=== PATIENT | male | born 1940 | race Caucasian/White ===

== ENCOUNTER → 2019-02-02 | Outpatient (CLI) | payer MEDICARE | END | disposition home or self-care (01) | LOC: SHCH 09:16 | PROVIDERS: ATTEND Internal Medicine Cardiovascular Disease | DX: I25.119 Atherosclerotic heart disease of native coronary artery with unspecified angina pectoris (principal); R06.09 Other forms of dyspnea | CPT/HCPCS: 93306 ==

== ENCOUNTER → 2019-03-16 | Outpatient (CLI) | payer MEDICARE | END | disposition home or self-care (01) | LOC: RAH 09:29 | PROVIDERS: ATTEND Internal Medicine Cardiovascular Disease | DX: I11.9 Hypertensive heart disease without heart failure (principal); I21.4 Non-ST elevation (NSTEMI) myocardial infarction | CPT/HCPCS: 93306 ==

== ENCOUNTER → 2021-02-06 | Outpatient (CLI) | payer MEDICARE | END | disposition home or self-care (01) | LOC: RAH 09:42 | PROVIDERS: ATTEND Otolaryngology Plastic Surgery within the Head & Neck | DX: R13.10 Dysphagia, unspecified (principal); R49.8 Other voice and resonance disorders | CPT/HCPCS: 74230; 76536; 92611 ==

== ENCOUNTER → 2022-09-14 | Outpatient (CLI) | payer MEDICARE | END | disposition home or self-care (01) | LOC: SHCH 10:46 | PROVIDERS: ATTEND Student in an Organized Health Care Education/Training Program | DX: I25.10 Atherosclerotic heart disease of native coronary artery without angina pectoris (principal); E78.5 Hyperlipidemia, unspecified; I25.5 Ischemic cardiomyopathy | CPT/HCPCS: 93306 ==

== ENCOUNTER → 2022-10-22 | Outpatient (CLI) | payer MEDICARE ==
[2022-10-22 16:29] LABS: BASOPHILS % (AUTO) 0.4 % (0.0-5.0); EOSINOPHILS % (AUTO) 0.5 % (0.0-8.0); HEMATOCRIT 48.8 % (42-54); LYMPHOCYTES % (AUTO) 25.2 % (21.0-51.0); MEAN CORPUSCULAR HEMOGLOBIN 29.5 pg (27.0-33.0); MEAN CORPUSCULAR HGB CONC 32.2 g/dL (32.0-36.0); MEAN CORPUSCULAR VOLUME 91.7 fL (79-99); MONOCYTES % (AUTO) 6.3 % (3.0-13.0); NEUTROPHILS % (AUTO) 65.7 % (40.0-77.0); PLATELET COUNT (AUTO) 157 K/uL (130-400); RED BLOOD CELL COUNT(AUTO) 5.32 MIL/uL (4.50-6.20); RED CELL DISTRIBUTION WIDTH 17.9 % (11.0-15.5); WHITE BLOOD COUNT (AUTO) 8.3 K/uL (4.8-10.8)
[2022-10-22 16:59] LABS: ALBUMIN 3.6 g/dL (3.5-5.0); CREATININE 1.2 mg/dL (0.5-1.5); POTASSIUM 4.5 mmol/L (3.5-5.1); TOTAL PROTEIN, SERUM 7.2 g/dL (6.0-8.3)
== END | disposition home or self-care (01) ==
LOC: LAB 15:18
PROVIDERS: ATTEND Student in an Organized Health Care Education/Training Program
DX: I10 Essential (primary) hypertension (principal); I25.10 Atherosclerotic heart disease of native coronary artery without angina pectoris; E78.5 Hyperlipidemia, unspecified
CPT/HCPCS: 36415; 80053; 80061; 85025; 86900; 86901

== ENCOUNTER 2022-11-09 08:46 | Day surgery (SDC) | payer MEDICARE ==
[2022-11-05 09:41] VITALS: BP 140/73
[2022-11-05 09:46] LABS: BASOPHILS % (AUTO) 0.4 % (0.0-5.0); EOSINOPHILS % (AUTO) 0.3 % (0.0-8.0); HEMATOCRIT 46.7 % (42-54); LYMPHOCYTES % (AUTO) 25.5 % (21.0-51.0); MEAN CORPUSCULAR HEMOGLOBIN 29.9 pg (27.0-33.0); MEAN CORPUSCULAR HGB CONC 32.5 g/dL (32.0-36.0); MEAN CORPUSCULAR VOLUME 91.9 fL (79-99); MONOCYTES % (AUTO) 9.2 % (3.0-13.0); NEUTROPHILS % (AUTO) 62.9 % (40.0-77.0); PLATELET COUNT (AUTO) 238 K/uL (130-400); RED BLOOD CELL COUNT(AUTO) 5.08 MIL/uL (4.50-6.20); RED CELL DISTRIBUTION WIDTH 18.7 % (11.0-15.5); WHITE BLOOD COUNT (AUTO) 10.9 K/uL (4.8-10.8)
[2022-11-05 09:56] LABS: CREATININE 1.1 mg/dL (0.5-1.5); POTASSIUM 4.3 mmol/L (3.5-5.1)
[2022-11-05 09:58] LABS: INR 0.94 (0.85-1.15); PROTHROMBIN TIME 10.3 SEC (9.6-11.6)
[2022-11-05 09:59] LABS: PARTIAL THROMBOPLASTIN TIME 23.9 SEC (26.3-35.5)
[2022-11-09] VITALS (15 sets, daily range): BP systolic 74–146; BP diastolic 45–86
[~2022-11-09] VITALS: Ht 182.9 cm; Wt 87.8 kg
[~2022-11-09 08:46] MED LIST: 0.9%NACL 1000ML 1,000 ML IV SCH; BUDE10.2 IH; CALC-1038 PO; CBD GUMMIES PO; COLL1CAP PO; HYDR-3830 PO; IPRA3AMP24 IH; LACT-356 PO; MAGN250T10 PO; MULT1CAP17 PO; NITR0.4T SL; OLME40TA18 PO; OMEP40CA21 PO; SERT-439 PO; TIOT18CA3 IH; [UNRECOGNIZED DRUG - OTHER] PO
[2022-11-09] MEDS ORDERED: LIDOCAINE HCL 2% VISCOUS 15 ML UDCUP ONE (10:54)
[2022-11-09] MEDS ORDERED: PROPOFOL 10 MG/ML 20ML VIAL IV ONE (11:08)
== END 2022-11-09 13:00 | disposition home or self-care (01) ==
LOC: DAH 08:46
PROVIDERS: ATTEND Student in an Organized Health Care Education/Training Program
DX: I35.9 Nonrheumatic aortic valve disorder, unspecified (principal); Z53.8 Procedure and treatment not carried out for other reasons; I25.10 Atherosclerotic heart disease of native coronary artery without angina pectoris; I10 Essential (primary) hypertension; E78.5 Hyperlipidemia, unspecified; J44.1 Chronic obstructive pulmonary disease with (acute) exacerbation; G47.30 Sleep apnea, unspecified; K21.9 Gastro-esophageal reflux disease without esophagitis; I25.2 Old myocardial infarction; Z90.49 Acquired absence of other specified parts of digestive tract; Z98.890 Other specified postprocedural states; Z95.5 Presence of coronary angioplasty implant and graft; Z68.27 Body mass index [BMI] 27.0-27.9, adult; Z87.891 Personal history of nicotine dependence; Z79.899 Other long term (current) drug therapy; Z72.89 Other problems related to lifestyle
CPT/HCPCS: 80048; 85025; 85610; 85730; 87426; 36415; 71045; 93005; A4223 ×3; J7030; J2704; A4215; A4222; A4221; A4663; A4216; A4606; 99152; 99156

== ENCOUNTER → 2022-11-19 | Outpatient (CLI) | payer MEDICARE ==
[~2022-11-19] MED LIST changes: -0.9%NACL 1000ML 1,000 ML IV SCH
== END | disposition home or self-care (01) ==
LOC: RAH 08:42
PROVIDERS: ATTEND Internal Medicine Gastroenterology
DX: K21.00 Gastro-esophageal reflux disease with esophagitis, without bleeding (principal)
CPT/HCPCS: 74220

== ENCOUNTER 2022-11-30 17:17 | Inpatient (IN) | payer MEDICARE ==
[~2022-11-30] VITALS: Ht 180.3 cm; Wt 91.6 kg
[~2022-11-30 17:17] MED LIST changes: +ETOMIDATE 20MG VIAL IVP ONE; +ROCURONIUM BROMIDE 10MG/1ML 5ML VL IV ONE
[2022-11-30] MEDS ORDERED: SOLU-MEDROL 125MG VIAL ONE (17:20)
[2022-11-30] MEDS ORDERED: DEXAMETHASONE SOD PHOSPHATE 4 MG/ML 1ML VIAL IM STA (17:20)
[2022-11-30] MEDS ORDERED: ALBUTEROL 0.083% 2.5 MG/3 ML INH IH ONE ×2 (17:26→19:00)
[2022-11-30] MEDS ORDERED: IPRATROPIUM 0.5 MG/2.5 ML INH IH ONE (17:26)
[2022-11-30] MEDS ORDERED: IPRATROPIUM/ALBUTEROL SULFATE 3 ML SOLUTION IH ONE (17:30)
[2022-11-30] MEDS ORDERED: SOLU-MEDROL 125MG VIAL IVP ONE (17:30)
[2022-11-30 17:44] LABS: ABG BASE EXCESS -3.9 mmol/L (-2.0-3.0); ABG OXYGEN SATURATION 97.9 % (95.0-99.0); ABG PCO2 33 mmHg (35-48)
[2022-11-30 17:48] LABS: BASOPHILS % (AUTO) 0.2 % (0.0-5.0); HEMATOCRIT 42.9 % (42-54); LYMPHOCYTES % (AUTO) 4.8 % (21.0-51.0); MEAN CORPUSCULAR HEMOGLOBIN 31.7 pg (27.0-33.0); MEAN CORPUSCULAR HGB CONC 33.3 g/dL (32.0-36.0); MEAN CORPUSCULAR VOLUME 95.1 fL (79-99); NEUTROPHILS % (AUTO) 88.5 % (40.0-77.0); PLATELET COUNT (AUTO) 164 K/uL (130-400); RED BLOOD CELL COUNT(AUTO) 4.51 MIL/uL (4.50-6.20); RED CELL DISTRIBUTION WIDTH 18.5 % (11.0-15.5); WHITE BLOOD COUNT (AUTO) 10.7 K/uL (4.8-10.8)
[2022-11-30 18:04] LABS: CREATININE 1.6 mg/dL (0.5-1.5); POTASSIUM 4.9 mmol/L (3.5-5.1)
[2022-11-30 18:14] LABS: ALBUMIN 3.6 g/dL (3.5-5.0); TOTAL PROTEIN, SERUM 7.7 g/dL (6.0-8.3)
[2022-11-30] MEDS ORDERED: ALBUTEROL 0.042% 1.25MG/3ML IH ONE ×2 (18:44→23:45)
[2022-11-30] MEDS ORDERED: AZITHROMYCIN 500MG+NS 250ML IVPB STA (18:49)
[2022-11-30] MEDS ORDERED: GUAIFENESIN-DM 200/20 MG 10 ML PO PRN (19:00)
[2022-11-30] MEDS ORDERED: ACETAMINOPHEN 325 MG TAB PO PRN ×2 (19:00)
[2022-11-30] MEDS: SOLU-MEDROL 40MG VIAL IVP SCH (19:00)
[2022-11-30] MEDS ORDERED: ONDANSETRON 4MG INJ IV PRN (19:00)
[2022-11-30] MEDS ORDERED: ACETAMINOPHEN WITH CODEINE 1 TAB TAB PO PRN (19:00)
[2022-11-30] MEDS ORDERED: NITROGLYCERIN 0.4 MG SL TAB SL PRN (19:00)
[2022-11-30] MEDS ORDERED: CEFTRIAXONE 1G VIAL IVP ONE (19:00)
[2022-11-30] MEDS: CEFTRIAXONE 1G VIAL IV SCH (19:00)
[2022-11-30] MEDS ORDERED: LACTULOSE 20 GM/30 ML UDCUP PO PRN (19:00)
[2022-11-30] MEDS: AZITHROMYCIN 500MG+NS 250ML 250 ML IV SCH (19:28)
[2022-11-30] MEDS ORDERED: MORPHINE 2 MG SYG IV PRN (19:30)
[2022-11-30 19:56] LABS: APPEARANCE,URINE CLEAR (CLEAR); BILIRUBIN,URINE NEGATIVE (NEGATIVE); COLOR,URINE YELLOW (YELLOW); GLUCOSE, URINE (UA) >=1000 mg/dL (NEGATIVE); KETONES,URINE NEGATIVE (NEGATIVE); LEUKOCYTE ESTERASE ,URINE NEGATIVE Leu/uL (NEGATIVE); NITRATE,URINE NEGATIVE (NEGATIVE); OCCULT BLOOD,URINE NEGATIVE (NEGATIVE); PROTEIN,URINE 50 mg/dL (NEGATIVE); UROBILINOGEN,URINE 0.2 mg/dL (0.2-1.0)
[2022-11-30] MEDS ORDERED: BUDE10.2 IH (19:56)
[2022-11-30] MEDS ORDERED: HYDR-3830 PO (19:56)
[2022-11-30 19:59] LABS: WBC,URINE 0-1 /HPF (0-1)
[2022-11-30] MEDS ORDERED: 0.9% NACL 500ML IV.SOLN 500 ML IV ONE (21:30)
[2022-11-30 21:42] LABS: HEMOGLOBIN A1C 7.5 % (4.0-6.0)
[2022-11-30] MEDS: INSULIN HUMULIN R 100 UNIT/ML 3ML SQ SCH (22:35)
[2022-11-30] MEDS: IPRATROPIUM 0.5 MG/2.5 ML INH IH PRN (23:53)
[2022-12-01] MEDS: SOLU-MEDROL 40MG VIAL IVP SCH ×4 (00:04→18:23)
[2022-12-01 04:30] VITALS: BP 110/67
[2022-12-01 05:35] LABS: HEMATOCRIT 39.6 % (42-54); MEAN CORPUSCULAR HEMOGLOBIN 30.8 pg (27.0-33.0); MEAN CORPUSCULAR HGB CONC 32.3 g/dL (32.0-36.0); MEAN CORPUSCULAR VOLUME 95.2 fL (79-99); RED BLOOD CELL COUNT(AUTO) 4.16 MIL/uL (4.50-6.20); RED CELL DISTRIBUTION WIDTH 18.3 % (11.0-15.5); WHITE BLOOD COUNT (AUTO) 8.8 K/uL (4.8-10.8)
[2022-12-01] MEDS: INSULIN HUMULIN R 100 UNIT/ML 3ML SQ SCH ×4 (05:37→20:30)
[2022-12-01 05:44] LABS: CREATININE 1.1 mg/dL (0.5-1.5); POTASSIUM 4.5 mmol/L (3.5-5.1)
[2022-12-01] MEDS ORDERED: ALBUTEROL 0.042% 1.25MG/3ML IH ONE ×3 (06:05→13:49)
[2022-12-01] MEDS: IPRATROPIUM 0.5 MG/2.5 ML INH IH PRN ×5 (06:15→22:12)
[2022-12-01] MEDS: ALBUTEROL 0.083% 2.5 MG/3 ML INH IH PRN ×2 (06:15→22:11)
[2022-12-01 08:00] VITALS: BP 117/61
[2022-12-01] MEDS: ENOXAPARIN SODIUM 30 MG/0.3 ML SQ SCH (08:13)
[2022-12-01] MEDS: ASPIRIN 81 MG EC TAB PO SCH (08:13)
[2022-12-01] MEDS: PANTOPRAZOLE 40 MG TAB DR PO SCH (08:13)
[2022-12-01] MEDS ORDERED: FAMOTIDINE 20MG TAB PO SCH (09:00)
[2022-12-01] MEDS ORDERED: LIDOCAINE HCL-MPF 1% 2ML VIAL IV PRN (10:30)
[2022-12-01] MEDS ORDERED: MAGNESIUM 2GM PREMIX 50ML 50 ML IV PRN (10:30)
[2022-12-01] MEDS ORDERED: KCL 20 MEQ ERTAB PO PRN (10:30)
[2022-12-01] MEDS ORDERED: POTASSIUM CHLORIDE 20MEQ/100ML 100 ML IV PRN (10:30)
[2022-12-01] MEDS ORDERED: POTASSIUM CHLORIDE 10% ELIXIR 20 MEQ/15 ML UDCUP PO PRN (10:30)
[2022-12-01 11:51] VITALS: BP 114/68
[2022-12-01 16:00] VITALS: BP 119/67
[2022-12-01] MEDS ORDERED: SIMETHICONE 80 MG TAB.CHEW PO PRN (16:30)
[2022-12-01] MEDS: CEFTRIAXONE 1G VIAL IV SCH (17:45)
[2022-12-01] MEDS: AZITHROMYCIN 500MG+NS 250ML 250 ML IV SCH (18:23)
[2022-12-01] MEDS: BUDESONIDE 0.5 MG/2 ML INH IH SCH (18:47)
[2022-12-01] MEDS: SERTRALINE HCL 50 MG TABLET PO SCH (19:48)
[2022-12-01 20:20] VITALS: BP 105/66
[2022-12-01] MEDS: MAG/ALUM/SIMETH 30 ML UDCUP PO PRN (20:23)
[2022-12-01] MEDS: INSULIN GLARGINE 100 UNITS/ML 10 ML VIAL SQ SCH (20:29)
[2022-12-01] MEDS ORDERED: PRAV40TA3 PO (20:34)
[2022-12-01] MEDS ORDERED: DICYCLOMINE HCL 10 MG/5 ML ML PO ONE (21:00)
[2022-12-01] MEDS ORDERED: LIDOCAINE HCL 2% VISCOUS 15 ML UDCUP PO ONE (21:00)
[2022-12-01] MEDS ORDERED: COMPOUND PO MISCELLANEOUS 1 EACH MISC MISC PRN (21:00)
[2022-12-01] MEDS ORDERED: PHARMACY COMMUNICATION MISC SCH (21:00)
[2022-12-01] MEDS ORDERED: MAG/ALUM/SIMETH 30 ML UDCUP PO ONE (21:00)
[2022-12-01] MEDS ORDERED: LIDO 2% VISC 30ML+MAG/AL/SIMETH 30ML+DICYCLOMINE 20MG 10ML PO ONE ×3 (21:30)
[2022-12-01 23:44] VITALS: BP 119/73
[2022-12-02] VITALS (34 sets, daily range): BP systolic 75–158; BP diastolic 35–94
[2022-12-02] MEDS: SOLU-MEDROL 40MG VIAL IVP SCH ×4 (00:10→20:44)
[2022-12-02] MEDS: IPRATROPIUM 0.5 MG/2.5 ML INH IH PRN ×3 (01:53→10:32)
[2022-12-02] MEDS: ALBUTEROL 0.083% 2.5 MG/3 ML INH IH PRN ×4 (01:53→21:38)
[2022-12-02 04:43] LABS: BASOPHILS % (AUTO) 0.3 % (0.0-5.0); HEMATOCRIT 40.2 % (42-54); LYMPHOCYTES % (AUTO) 9.7 % (21.0-51.0); MEAN CORPUSCULAR HEMOGLOBIN 31.2 pg (27.0-33.0); MEAN CORPUSCULAR HGB CONC 32.8 g/dL (32.0-36.0); MONOCYTES % (AUTO) 4.2 % (3.0-13.0); NEUTROPHILS % (AUTO) 84.2 % (40.0-77.0); PLATELET COUNT (AUTO) 174 K/uL (130-400); RED BLOOD CELL COUNT(AUTO) 4.23 MIL/uL (4.50-6.20); RED CELL DISTRIBUTION WIDTH 17.9 % (11.0-15.5); WHITE BLOOD COUNT (AUTO) 7.6 K/uL (4.8-10.8)
[2022-12-02 04:56] LABS: CREATININE 1.1 mg/dL (0.5-1.5); PHOSPHORUS 3.2 mg/dL (2.5-4.9); POTASSIUM 4.3 mmol/L (3.5-5.1)
[2022-12-02] MEDS: INSULIN HUMULIN R 100 UNIT/ML 3ML SQ SCH (06:22)
[2022-12-02] MEDS: BUDESONIDE 0.5 MG/2 ML INH IH SCH ×4 (06:36→21:00)
[2022-12-02] MEDS: ASPIRIN 81 MG EC TAB PO SCH (08:07)
[2022-12-02] MEDS: PANTOPRAZOLE 40 MG TAB DR PO SCH (08:07)
[2022-12-02] MEDS: ENOXAPARIN SODIUM 30 MG/0.3 ML SQ SCH (08:08)
[2022-12-02 09:37] LABS: ABG BASE EXCESS -1.7 mmol/L (-2.0-3.0); ABG HCO3 24.3 mmol/L (21.0-28.0); ABG OXYGEN SATURATION 93.3 % (95.0-99.0); ABG PCO2 46 mmHg (35-48)
[2022-12-02] MEDS: HYDROXYZINE 10 MG TABLET PO PRN (09:37)
[2022-12-02] MEDS ORDERED: MORPHINE 2 MG SYG IVP SCH (11:00)
[2022-12-02] MEDS ORDERED: METOPROLOL TARTRATE 1 MG/ML 5ML VIAL IV ONE (11:15)
[2022-12-02] MEDS ORDERED: METOPROLOL TARTRATE 1 MG/ML 5ML VIAL IV SCH (11:30)
[2022-12-02] MEDS ORDERED: FUROSEMIDE 40MG VIAL ONE (12:18)
[2022-12-02] MEDS ORDERED: SOLU-MEDROL 40MG VIAL IVP ONE (12:30)
[2022-12-02] MEDS ORDERED: SOLU-MEDROL 125MG VIAL IVP SCH (12:30)
[2022-12-02] MEDS ORDERED: FUROSEMIDE 40MG VIAL IV SCH (12:30)
[2022-12-02] MEDS ORDERED: 0.9%NACL 50ML IV SCH ×2 (13:00→14:00)
[2022-12-02] MEDS ORDERED: MORPHINE 2 MG SYG IVP ONE (13:00)
[2022-12-02 13:02] LABS: ABG BASE EXCESS -7.6 mmol/L (-2.0-3.0); ABG HCO3 21.6 mmol/L (21.0-28.0); ABG OXYGEN SATURATION 95.4 % (95.0-99.0); ABG PCO2 60 mmHg (35-48)
[2022-12-02] MEDS ORDERED: DEXMEDETOMIDINE 400MCG/NS100ML IV ONE (13:06)
[2022-12-02 13:16] LABS: CREATININE 1.7 mg/dL (0.5-1.5)
[2022-12-02] MEDS ORDERED: DILTIAZEM IV SCH (13:20)
[2022-12-02] MEDS ORDERED: [UNRECOGNIZED DRUG - OTHER] IV SCH (13:20)
[2022-12-02] MEDS ORDERED: DILTIAZEM 25MG INJ IVP SCH (13:20)
[2022-12-02 13:28] LABS: POTASSIUM 6.1 mmol/L (3.5-5.1)
[2022-12-02] MEDS ORDERED: DEXTROSE 50%-WATER 50 ML DISP.SYRIN IV PRN (13:30)
[2022-12-02] MEDS ORDERED: LIDOCAINE HCL-MPF 1% 2ML VIAL IV PRN (13:30)
[2022-12-02] MEDS ORDERED: GLUCAGON 1MG KIT 1 MG ML IM PRN (13:30)
[2022-12-02] MEDS ORDERED: POTASSIUM CHLORIDE 20MEQ/100ML 100 ML IV PRN (13:30)
[2022-12-02] MEDS ORDERED: DILTIAZEM 125MG+100 ML NS 125 ML IV SCH (13:30)
[2022-12-02] MEDS ORDERED: MAGNESIUM 2GM PREMIX 50ML 50 ML IV PRN (13:30)
[2022-12-02] MEDS ORDERED: SODIUM BICARB 50MEQ 50ML VIAL 50 ML ONE (13:46)
[2022-12-02] MEDS ORDERED: DEXTROSE 50%-WATER 50 ML DISP.SYRIN IV SCH (14:00)
[2022-12-02] MEDS ORDERED: DILTIAZEM 125MG+100 ML NS 125 ML IV NR (14:00)
[2022-12-02] MEDS ORDERED: INSULIN HUMULIN R 100 UNIT/ML 3ML IV SCH (14:00)
[2022-12-02] MEDS ORDERED: CALCIUM GLUC 1GM/10ML VIAL IVPB SCH (14:00)
[2022-12-02 14:04] LABS: ABG BASE EXCESS -6.5 mmol/L (-2.0-3.0); ABG HCO3 23.6 mmol/L (21.0-28.0); ABG OXYGEN SATURATION 89.6 % (95.0-99.0); ABG PCO2 70 mmHg (35-48)
[2022-12-02] MEDS ORDERED: PROPOFOL 1000 MG/100 ML 100 ML IV ONE (14:08)
[2022-12-02] MEDS ORDERED: MIDAZOLAM 100MG-0.9% NS 100ML 100 ML IV ONE (14:08)
[2022-12-02] MEDS: IPRATROPIUM 0.5 MG/2.5 ML INH IH SCH ×4 (14:22→23:26)
[2022-12-02] MEDS ORDERED: KAYEXALATE 15GM/60ML RC ONE (15:00)
[2022-12-02] MEDS: ENOXAPARIN SODIUM 100 MG/1 ML SQ SCH (16:44)
[2022-12-02] MEDS: SODIUM BICARB 50MEQ 50ML VIAL IV SCH (16:46)
[2022-12-02] MEDS: ZOSYN 3.375GM +NS 50ML IVPB SCH ×2 (16:47→20:44)
[2022-12-02] MEDS: DEXMEDETOMIDINE 400MCG/NS100ML IV SCH (16:49)
[2022-12-02] MEDS ORDERED: ZIPRASIDONE MESYLATE 20 MG/VIAL IM PRN (17:00)
[2022-12-02] MEDS ORDERED: THIAMINE HCL 100 MG/ML 2ML VIAL IVP ONE (17:30)
[2022-12-02] MEDS ORDERED: INSULIN HUMULIN R 100 UNIT/ML 3ML SQ SCH (17:30)
[2022-12-02 18:15] LABS: INR 1.02 (0.85-1.15); PROTHROMBIN TIME 11.1 SEC (9.6-11.6)
[2022-12-02 19:01] LABS: CREATININE 2.3 mg/dL (0.5-1.5); POTASSIUM 5.9 mmol/L (3.5-5.1)
[2022-12-02] MEDS ORDERED: NOREPINEPHRIN 8MG/250ML NS PMX 250 ML IV ONE (19:20)
[2022-12-02] MEDS: AZITHROMYCIN 500MG+NS 250ML 250 ML IV SCH (20:44)
[2022-12-02] MEDS: INSULIN GLARGINE 100 UNITS/ML 10 ML VIAL SQ SCH (20:45)
[2022-12-02] MEDS: SERTRALINE HCL 50 MG TABLET PO SCH (20:46)
[2022-12-02] MEDS ORDERED: NOREPINEPHRINE 8MG/NS 250ML PREMIX IV SCH (21:30)
[2022-12-02 21:39] LABS: ABG BASE EXCESS -5.7 mmol/L (-2.0-3.0); ABG HCO3 21.1 mmol/L (21.0-28.0); ABG OXYGEN SATURATION 98.2 % (95.0-99.0); ABG PCO2 46 mmHg (35-48)
[2022-12-02] MEDS ORDERED: LACTATED RINGERS 1000ML IV SCH (21:45)
[2022-12-02] MEDS ORDERED: 0.9%NACL 1000ML 1,506 ML IV ONE (22:00)
[2022-12-02] MEDS ORDERED: NOREPINEPHRIN 8MG/250ML NS PMX 250 ML IV SCH (22:00)
[2022-12-02] MEDS ORDERED: SODIUM BICARB 50MEQ 50ML VIAL IV ONE (23:00)
[2022-12-03] VITALS (59 sets, daily range): BP systolic 93–175; BP diastolic 47–100
[2022-12-03] MEDS: SOLU-MEDROL 40MG VIAL IVP SCH ×4 (01:24→18:23)
[2022-12-03] MEDS: IPRATROPIUM 0.5 MG/2.5 ML INH IH SCH ×5 (01:47→18:59)
[2022-12-03] MEDS: ALBUTEROL 0.083% 2.5 MG/3 ML INH IH PRN (01:47)
[2022-12-03] MEDS ORDERED: SODIUM BICARB 50MEQ 50ML VIAL IVPB SCH (03:00)
[2022-12-03 04:04] LABS: BASOPHILS % (AUTO) 0.7 % (0.0-5.0); EOSINOPHILS % (AUTO) 0.4 % (0.0-8.0); HEMATOCRIT 32.9 % (42-54); LYMPHOCYTES % (AUTO) 10.1 % (21.0-51.0); MEAN CORPUSCULAR HEMOGLOBIN 31.2 pg (27.0-33.0); MEAN CORPUSCULAR HGB CONC 32.5 g/dL (32.0-36.0); MEAN CORPUSCULAR VOLUME 95.9 fL (79-99); MONOCYTES % (AUTO) 4.1 % (3.0-13.0); NEUTROPHILS % (AUTO) 78.4 % (40.0-77.0); PLATELET COUNT (AUTO) 118 K/uL (130-400); RED BLOOD CELL COUNT(AUTO) 3.43 MIL/uL (4.50-6.20); RED CELL DISTRIBUTION WIDTH 17.9 % (11.0-15.5); WHITE BLOOD COUNT (AUTO) 7.3 K/uL (4.8-10.8)
[2022-12-03 04:22] LABS: CREATININE 2.1 mg/dL (0.5-1.5); MAGNESIUM 2.2 mg/dL (1.80-2.40); PHOSPHORUS 5.4 mg/dL (2.5-4.9); POTASSIUM 4.6 mmol/L (3.5-5.1)
[2022-12-03 04:22] LABS: ABG BASE EXCESS 4.1 mmol/L (-2.0-3.0); ABG HCO3 29.5 mmol/L (21.0-28.0); ABG OXYGEN SATURATION 92.4 % (95.0-99.0); ABG PCO2 47 mmHg (35-48)
[2022-12-03] MEDS: ZOSYN 3.375GM +NS 50ML IVPB SCH ×3 (04:46→21:27)
[2022-12-03] MEDS: DEXMEDETOMIDINE 400MCG/NS100ML IV SCH ×4 (04:47→14:34)
[2022-12-03] MEDS: INSULIN HUMULIN R 100 UNIT/ML 3ML SQ SCH ×4 (06:00→18:22)
[2022-12-03] MEDS: THIAMINE HCL 100 MG/ML 2ML VIAL IVP SCH (08:02)
[2022-12-03] MEDS: PANTOPRAZOLE 40 MG TAB DR PO SCH (08:02)
[2022-12-03] MEDS: ASPIRIN 81 MG EC TAB PO SCH (08:02)
[2022-12-03] MEDS: PANTOPRAZOLE 40 MG/VIAL IVP SCH (11:34)
[2022-12-03] MEDS: CHLORHEXIDINE GLUCONATE 473 ML MOUTHWASH MM SCH ×4 (11:46→21:33)
[2022-12-03] MEDS: 0.9%NACL 1000ML 1,000 ML IV SCH ×2 (13:04→19:24)
[2022-12-03] MEDS: SODIUM BICARB 50MEQ 50ML VIAL IV SCH (13:06)
[2022-12-03] MEDS: ENOXAPARIN SODIUM 100 MG/1 ML SQ SCH (16:18)
[2022-12-03] MEDS: AZITHROMYCIN 500MG+NS 250ML 250 ML IV SCH (18:22)
[2022-12-03] MEDS: BUDESONIDE 0.5 MG/2 ML INH IH SCH (19:03)
[2022-12-03 20:23] LABS: ABG HCO3 29.9 mmol/L (21.0-28.0); ABG OXYGEN SATURATION 95.6 % (95.0-99.0); ABG PCO2 45 mmHg (35-48)
[2022-12-03] MEDS: SERTRALINE HCL 50 MG TABLET PO SCH ×2 (21:00→21:27)
[2022-12-03] MEDS ORDERED: MORPHINE 4 MG SYG IM PRN (21:30)
[2022-12-03] MEDS ORDERED: MORPHINE 2 MG SYG IVP PRN (21:30)
[2022-12-03] MEDS: INSULIN GLARGINE 100 UNITS/ML 10 ML VIAL SQ SCH (21:32)
[2022-12-04] VITALS (38 sets, daily range): BP systolic 91–130; BP diastolic 44–85
[2022-12-04] MEDS: DEXMEDETOMIDINE 400MCG/NS100ML IV SCH ×3 (00:45→23:48)
[2022-12-04] MEDS: 0.9%NACL 1000ML 1,000 ML IV SCH ×3 (01:41→14:40)
[2022-12-04] MEDS: SOLU-MEDROL 40MG VIAL IVP SCH ×4 (01:41→21:45)
[2022-12-04] MEDS: IPRATROPIUM 0.5 MG/2.5 ML INH IH SCH ×4 (02:00→12:30)
[2022-12-04 04:12] LABS: BASOPHILS % (AUTO) 0.1 % (0.0-5.0); HEMATOCRIT 28.1 % (42-54); LYMPHOCYTES % (AUTO) 6.9 % (21.0-51.0); MEAN CORPUSCULAR HEMOGLOBIN 31.3 pg (27.0-33.0); MEAN CORPUSCULAR HGB CONC 32.4 g/dL (32.0-36.0); MEAN CORPUSCULAR VOLUME 96.6 fL (79-99); MONOCYTES % (AUTO) 4.2 % (3.0-13.0); NEUTROPHILS % (AUTO) 84.7 % (40.0-77.0); PLATELET COUNT (AUTO) 110 K/uL (130-400); RED BLOOD CELL COUNT(AUTO) 2.91 MIL/uL (4.50-6.20); RED CELL DISTRIBUTION WIDTH 17.6 % (11.0-15.5); WHITE BLOOD COUNT (AUTO) 9.1 K/uL (4.8-10.8)
[2022-12-04 04:36] LABS: CREATININE 1.7 mg/dL (0.5-1.5); MAGNESIUM 2.2 mg/dL (1.80-2.40); POTASSIUM 4.2 mmol/L (3.5-5.1)
[2022-12-04] MEDS: INSULIN HUMULIN R 100 UNIT/ML 3ML SQ SCH ×4 (05:17→17:05)
[2022-12-04] MEDS: ZOSYN 3.375GM +NS 50ML IVPB SCH ×3 (05:24→21:47)
[2022-12-04] MEDS: BUDESONIDE 0.5 MG/2 ML INH IH SCH ×2 (06:14→18:00)
[2022-12-04 07:18] LABS: ABG BASE EXCESS 5.6 mmol/L (-2.0-3.0); ABG HCO3 30.5 mmol/L (21.0-28.0); ABG OXYGEN SATURATION 96.3 % (95.0-99.0); ABG PCO2 45 mmHg (35-48)
[2022-12-04] MEDS: ASPIRIN 81 MG EC TAB PO SCH (09:00)
[2022-12-04] MEDS ORDERED: ACETYLCYSTEINE 20% 200MG/ML 4ML VIAL PO ONE (09:30)
[2022-12-04 09:49] LABS: BASOPHILS % (AUTO) 0.2 % (0.0-5.0); HEMATOCRIT 30.1 % (42-54); LYMPHOCYTES % (AUTO) 7.6 % (21.0-51.0); MEAN CORPUSCULAR HEMOGLOBIN 31.4 pg (27.0-33.0); MEAN CORPUSCULAR HGB CONC 31.6 g/dL (32.0-36.0); MEAN CORPUSCULAR VOLUME 99.3 fL (79-99); MONOCYTES % (AUTO) 3.1 % (3.0-13.0); PLATELET COUNT (AUTO) 142 K/uL (130-400); RED BLOOD CELL COUNT(AUTO) 3.03 MIL/uL (4.50-6.20); RED CELL DISTRIBUTION WIDTH 17.9 % (11.0-15.5)
[2022-12-04 09:58] LABS: CREATININE 1.6 mg/dL (0.5-1.5); POTASSIUM 4.4 mmol/L (3.5-5.1)
[2022-12-04 10:01] LABS: INR 1.04 (0.85-1.15); PROTHROMBIN TIME 11.3 SEC (9.6-11.6)
[2022-12-04 10:02] LABS: PARTIAL THROMBOPLASTIN TIME 24.3 SEC (26.3-35.5)
[2022-12-04] MEDS: ACETYLCYSTEINE 20% 200MG/ML 4ML VIAL PO SCH ×2 (10:07→16:28)
[2022-12-04] MEDS: THIAMINE HCL 100 MG/ML 2ML VIAL IVP SCH (10:08)
[2022-12-04] MEDS: PANTOPRAZOLE 40 MG/VIAL IVP SCH (10:08)
[2022-12-04] MEDS ORDERED: FUROSEMIDE 40MG VIAL IV ONE (10:30)
[2022-12-04] MEDS ORDERED: PHYTONADIONE 10 MG in 0.9%NACL 50ML 50 ML IVPB ONE (10:30)
[2022-12-04] MEDS ORDERED: SUCCINYLCHOLINE 200MG/10ML SYR ONE (12:10)
[2022-12-04] MEDS ORDERED: PROPOFOL 10 MG/ML 20ML VIAL IV ONE (12:10)
[2022-12-04] MEDS ORDERED: EPHEDRINE SULFATE 50 MG/ML AMPULE ONE (12:10)
[2022-12-04] MEDS ORDERED: FENTANYL CITRATE PF 50 MCG/1 ML 2ML VIAL ONE (12:10)
[2022-12-04] MEDS ORDERED: ROCURONIUM 10MG/1ML SYR 10 MG/ML ML ONE (12:11)
[2022-12-04] MEDS ORDERED: AMINOCAPROIC ACID 5,000MG VIAL IV STA (12:17)
[2022-12-04] MEDS: SODIUM BICARB 50MEQ 50ML VIAL IV SCH (12:55)
[2022-12-04] MEDS: CHLORHEXIDINE GLUCONATE 473 ML MOUTHWASH MM SCH ×4 (13:00→21:47)
[2022-12-04] MEDS ORDERED: AMINOCAPROIC ACID 5,000MG VIAL 1,000 MG in 0.9%NACL 50ML 50 ML IV ONE (13:00)
[2022-12-04] MEDS ORDERED: IPRATROPIUM 0.5 MG/2.5 ML INH IH PRN (18:00)
[2022-12-04] MEDS ORDERED: IPRATROPIUM 0.5 MG/2.5 ML INH IH SCH (18:00)
[2022-12-04] MEDS: AZITHROMYCIN 500MG+NS 250ML 250 ML IV SCH (21:45)
[2022-12-04] MEDS: SERTRALINE HCL 50 MG TABLET PO SCH (21:46)
[2022-12-04] MEDS: INSULIN GLARGINE 100 UNITS/ML 10 ML VIAL SQ SCH (21:58)
[2022-12-05] VITALS (32 sets, daily range): BP systolic 99–131; BP diastolic 40–74
[2022-12-05] MEDS: INSULIN HUMULIN R 100 UNIT/ML 3ML SQ SCH ×4 (01:00→18:00)
[2022-12-05] MEDS: SOLU-MEDROL 40MG VIAL IVP SCH ×4 (01:04→20:54)
[2022-12-05 04:21] LABS: BASOPHILS % (AUTO) 0.1 % (0.0-5.0); LYMPHOCYTES % (AUTO) 9.2 % (21.0-51.0); MEAN CORPUSCULAR HEMOGLOBIN 31.4 pg (27.0-33.0); MEAN CORPUSCULAR HGB CONC 32.6 g/dL (32.0-36.0); MEAN CORPUSCULAR VOLUME 96.2 fL (79-99); MONOCYTES % (AUTO) 2.2 % (3.0-13.0); NUCLEATED RED BLOOD CELLS 0.3 % (0.0-0.19); PLATELET COUNT (AUTO) 149 K/uL (130-400); RED BLOOD CELL COUNT(AUTO) 2.39 MIL/uL (4.50-6.20); RED CELL DISTRIBUTION WIDTH 17.3 % (11.0-15.5); WHITE BLOOD COUNT (AUTO) 9.1 K/uL (4.8-10.8)
[2022-12-05 04:46] LABS: ALBUMIN 2.4 g/dL (3.5-5.0); CREATININE 1.4 mg/dL (0.5-1.5); MAGNESIUM 2.3 mg/dL (1.80-2.40); PHOSPHORUS 3.6 mg/dL (2.5-4.9); POTASSIUM 4.2 mmol/L (3.5-5.1); TOTAL PROTEIN, SERUM 5.1 g/dL (6.0-8.3)
[2022-12-05] MEDS: ZOSYN 3.375GM +NS 50ML IVPB SCH ×3 (04:58→20:54)
[2022-12-05] MEDS: DEXMEDETOMIDINE 400MCG/NS100ML IV SCH ×2 (05:01→15:05)
[2022-12-05] MEDS: BUDESONIDE 0.5 MG/2 ML INH IH SCH ×2 (06:00→18:34)
[2022-12-05] MEDS: AMINOCAPROIC ACID 5,000MG VIAL IV SCH ×2 (06:43→12:58)
[2022-12-05] MEDS: THIAMINE HCL 100 MG/ML 2ML VIAL IVP SCH (10:00)
[2022-12-05] MEDS: 0.9%NACL 1000ML 1,000 ML IV SCH (10:01)
[2022-12-05] MEDS: ASPIRIN 81 MG EC TAB PO SCH (10:01)
[2022-12-05] MEDS: PANTOPRAZOLE 40 MG/VIAL IVP SCH (10:01)
[2022-12-05] MEDS: CHLORHEXIDINE GLUCONATE 473 ML MOUTHWASH MM SCH ×4 (10:16→20:57)
[2022-12-05] MEDS: SODIUM BICARB 50MEQ 50ML VIAL IV SCH (13:46)
[2022-12-05] MEDS ORDERED: CLINIMIX-E 5%AA /D15%W 2000ML 2,000 ML IV ONE (18:30)
[2022-12-05] MEDS: AZITHROMYCIN 500MG+NS 250ML 250 ML IV SCH (20:54)
[2022-12-05] MEDS: INSULIN GLARGINE 100 UNITS/ML 10 ML VIAL SQ SCH (20:55)
[2022-12-05] MEDS: SERTRALINE HCL 50 MG TABLET PO SCH (20:56)
[2022-12-05] MEDS: ACETYLCYSTEINE 20% 200MG/ML 4ML VIAL PO SCH (21:30)
[2022-12-06] VITALS (25 sets, daily range): BP systolic 111–175; BP diastolic 50–84
[2022-12-06] MEDS: INSULIN HUMULIN R 100 UNIT/ML 3ML SQ SCH ×4 (00:54→17:09)
[2022-12-06] MEDS: SOLU-MEDROL 40MG VIAL IVP SCH ×4 (02:11→20:36)
[2022-12-06] MEDS: ACETYLCYSTEINE 20% 200MG/ML 4ML VIAL PO SCH (02:12)
[2022-12-06 03:12] LABS: BASOPHILS % (AUTO) 0.2 % (0.0-5.0); HEMATOCRIT 26.2 % (42-54); MEAN CORPUSCULAR HEMOGLOBIN 31.2 pg (27.0-33.0); MEAN CORPUSCULAR HGB CONC 32.1 g/dL (32.0-36.0); MEAN CORPUSCULAR VOLUME 97.4 fL (79-99); MONOCYTES % (AUTO) 2.4 % (3.0-13.0); NEUTROPHILS % (AUTO) 84.4 % (40.0-77.0); NUCLEATED RED BLOOD CELLS 0.3 % (0.0-0.19); PLATELET COUNT (AUTO) 140 K/uL (130-400); RED BLOOD CELL COUNT(AUTO) 2.69 MIL/uL (4.50-6.20); RED CELL DISTRIBUTION WIDTH 17.4 % (11.0-15.5); WHITE BLOOD COUNT (AUTO) 10.3 K/uL (4.8-10.8)
[2022-12-06 03:31] LABS: ALBUMIN 2.4 g/dL (3.5-5.0); CREATININE 1.2 mg/dL (0.5-1.5); MAGNESIUM 2.4 mg/dL (1.80-2.40); POTASSIUM 4.2 mmol/L (3.5-5.1); TOTAL PROTEIN, SERUM 5.1 g/dL (6.0-8.3)
[2022-12-06] MEDS: ZOSYN 3.375GM +NS 50ML IVPB SCH ×3 (03:40→20:36)
[2022-12-06] MEDS ORDERED: BUDESONIDE 0.5 MG/2 ML INH IH ONE (06:17)
[2022-12-06] MEDS: BUDESONIDE 0.5 MG/2 ML INH IH SCH ×2 (06:38→18:51)
[2022-12-06] MEDS: PANTOPRAZOLE 40 MG/VIAL IVP SCH (08:14)
[2022-12-06] MEDS: CHLORHEXIDINE GLUCONATE 473 ML MOUTHWASH MM SCH ×4 (08:14→20:37)
[2022-12-06] MEDS: THIAMINE HCL 100 MG/ML 2ML VIAL IVP SCH (08:14)
[2022-12-06] MEDS: ASPIRIN 81 MG EC TAB PO SCH (08:14)
[2022-12-06] MEDS: INSULIN GLARGINE 100 UNITS/ML 10 ML VIAL SQ SCH ×2 (10:05→21:22)
[2022-12-06] MEDS: HYDROXYZINE 10 MG TABLET PO PRN ×2 (11:43→22:33)
[2022-12-06] MEDS ORDERED: PHARMACY COMMUNICATION MISC SCH (12:00)
[2022-12-06] MEDS ORDERED: FUROSEMIDE 40MG VIAL IV SCH (13:00)
[2022-12-06] MEDS ORDERED: CLINIMIX-E 5%AA /D15%W 2000ML 2,000 ML IV ONE (18:00)
[2022-12-06] MEDS: ARFORMOTEROL 15 MCG NEB SCH (19:21)
[2022-12-06] MEDS: ALBUTEROL 0.083% 2.5 MG/3 ML INH IH PRN (19:57)
[2022-12-06] MEDS: AZITHROMYCIN 500MG+NS 250ML 250 ML IV SCH (20:36)
[2022-12-06] MEDS: SERTRALINE HCL 50 MG TABLET PO SCH (20:36)
[2022-12-06 23:11] LABS: MAGNESIUM 2.2 mg/dL (1.80-2.40); POTASSIUM 3.7 mmol/L (3.5-5.1)
[2022-12-07] VITALS (30 sets, daily range): BP systolic 109–157; BP diastolic 44–82
[2022-12-07] MEDS: INSULIN HUMULIN R 100 UNIT/ML 3ML SQ SCH ×5 (00:58→23:59)
[2022-12-07] MEDS: SOLU-MEDROL 40MG VIAL IVP SCH ×3 (02:36→23:56)
[2022-12-07] MEDS ORDERED: ZIPRASIDONE MESYLATE 20 MG/VIAL IM ONE (03:55)
[2022-12-07 03:56] LABS: BASOPHILS % (AUTO) 0.4 % (0.0-5.0); LYMPHOCYTES % (AUTO) 6.3 % (21.0-51.0); MEAN CORPUSCULAR HGB CONC 33.1 g/dL (32.0-36.0); MEAN CORPUSCULAR VOLUME 93.5 fL (79-99); MONOCYTES % (AUTO) 2.9 % (3.0-13.0); NEUTROPHILS % (AUTO) 84.3 % (40.0-77.0); NUCLEATED RED BLOOD CELLS 0.5 % (0.0-0.19); PLATELET COUNT (AUTO) 239 K/uL (130-400); RED CELL DISTRIBUTION WIDTH 17.4 % (11.0-15.5); WHITE BLOOD COUNT (AUTO) 20.9 K/uL (4.8-10.8)
[2022-12-07 04:06] LABS: ALBUMIN 2.7 g/dL (3.5-5.0); CREATININE 1.2 mg/dL (0.5-1.5); MAGNESIUM 2.2 mg/dL (1.80-2.40); PHOSPHORUS 2.7 mg/dL (2.5-4.9); TOTAL PROTEIN, SERUM 5.8 g/dL (6.0-8.3)
[2022-12-07] MEDS ORDERED: HYDROXYZINE 10 MG TABLET PO SCH (05:25)
[2022-12-07] MEDS: ZOSYN 3.375GM +NS 50ML IVPB SCH ×3 (05:30→20:38)
[2022-12-07] MEDS: BUDESONIDE 0.5 MG/2 ML INH IH SCH ×2 (06:49→18:00)
[2022-12-07] MEDS: ARFORMOTEROL 15 MCG NEB SCH ×2 (09:00→21:00)
[2022-12-07] MEDS ORDERED: FAT EMULSIONS 20% 250ML 250 ML IV SCH (10:00)
[2022-12-07] MEDS: THIAMINE HCL 100 MG/ML 2ML VIAL IVP SCH (10:31)
[2022-12-07] MEDS: PANTOPRAZOLE 40 MG/VIAL IVP SCH (10:31)
[2022-12-07] MEDS: INSULIN GLARGINE 100 UNITS/ML 10 ML VIAL SQ SCH ×2 (10:42→21:04)
[2022-12-07] MEDS: CHLORHEXIDINE GLUCONATE 473 ML MOUTHWASH MM SCH ×4 (10:51→20:39)
[2022-12-07] MEDS: DEXMEDETOMIDINE 400MCG/NS100ML IV SCH ×3 (11:14→23:16)
[2022-12-07] MEDS ORDERED: LABETALOL 20MG VIAL IV PRN (12:00)
[2022-12-07] MEDS ORDERED: CLINIMIX-E 5%AA /D15%W 2000ML 2,000 ML IV PRN (13:30)
[2022-12-07] MEDS: AZITHROMYCIN 500MG+NS 250ML 250 ML IV SCH (20:38)
[2022-12-07] MEDS: SERTRALINE HCL 50 MG TABLET PO SCH (20:39)
[2022-12-07] MEDS ORDERED: FUROSEMIDE 40MG VIAL IV ONE (21:30)
[2022-12-07 23:26] LABS: ABG BASE EXCESS 4.1 mmol/L (-2.0-3.0); ABG HCO3 28.6 mmol/L (21.0-28.0); ABG OXYGEN SATURATION 97.2 % (95.0-99.0); ABG PCO2 43 mmHg (35-48)
[2022-12-07] MEDS ORDERED: PHARMACY COMMUNICATION MISC SCH (23:45)
[2022-12-08] VITALS (42 sets, daily range): BP systolic 85–149; BP diastolic 44–87
[2022-12-08] MEDS ORDERED: RACEPINEPHRINE HCL 2.25% 0.5 ML NEB SOLN IH SCH
[2022-12-08] MEDS ORDERED: OXYMETAZOLINE HCL SPRAY 15 ML BOTTLE EN SCH
[2022-12-08] MEDS ORDERED: TRANEXAMIC ACID 1000MG/10ML ONE (00:08)
[2022-12-08] MEDS ORDERED: TRANEXAMIC ACID 1000MG/10ML TP ONE ×2 (00:30→06:00)
[2022-12-08] MEDS: OXYMETAZOLINE HCL SPRAY 15 ML BOTTLE EN SCH ×3 (00:41→21:08)
[2022-12-08] MEDS: ZOSYN 3.375GM +NS 50ML IVPB SCH ×3 (05:07→20:57)
[2022-12-08] MEDS: INSULIN HUMULIN R 100 UNIT/ML 3ML SQ SCH ×3 (05:16→17:46)
[2022-12-08 05:22] LABS: BASOPHILS % (AUTO) 0.3 % (0.0-5.0); HEMATOCRIT 28.8 % (42-54); LYMPHOCYTES % (AUTO) 5.5 % (21.0-51.0); MEAN CORPUSCULAR HEMOGLOBIN 31.7 pg (27.0-33.0); MONOCYTES % (AUTO) 2.5 % (3.0-13.0); NEUTROPHILS % (AUTO) 86.1 % (40.0-77.0); NUCLEATED RED BLOOD CELLS 0.3 % (0.0-0.19); PLATELET COUNT (AUTO) 210 K/uL (130-400); RED CELL DISTRIBUTION WIDTH 17.5 % (11.0-15.5)
[2022-12-08 05:47] LABS: ALANINE AMINOTRANSFERASE 343 U/L (12-78); ALBUMIN 2.9 g/dL (3.5-5.0); ASPARTATE AMINOTRANSFERASE 46 U/L (10-37); CARBON DIOXIDE 32 mmol/L (21-32); CHLORIDE 106 mmol/L (101-111); CHOLESTEROL 173 mg/dL (<200); CREATININE 1.1 mg/dL (0.5-1.5); CRP QUANTITATIVE < 2.00 mg/L (0.00-9.0); GLOMERULAR FILTR. RATE CALC 68 mL/min (>90); GLUCOSE,RANDOM 184 mg/dL (70-105); HDL CHOLESTEROL 47 mg/dL (29-71); LDL DIRECT 101 mg/dL (0-99); SODIUM SERUM 142 mmol/L (136-145); TOTAL PROTEIN, SERUM 6.1 g/dL (6.0-8.3); TRIGLYCERIDES 119 mg/dL (30-200); UREA NITROGEN, BLOOD 46 mg/dL (7-18)
[2022-12-08] MEDS: BUDESONIDE 0.5 MG/2 ML INH IH SCH ×2 (06:00→18:00)
[2022-12-08 07:40] LABS: ABG BASE EXCESS 4.6 mmol/L (-2.0-3.0); ABG HCO3 27.9 mmol/L (21.0-28.0); ABG OXYGEN SATURATION 95.3 % (95.0-99.0); ABG PCO2 37 mmHg (35-48)
[2022-12-08] MEDS: ARFORMOTEROL 15 MCG NEB SCH ×2 (09:00→20:58)
[2022-12-08] MEDS: PANTOPRAZOLE 40 MG/VIAL IVP SCH (09:40)
[2022-12-08] MEDS: CHLORHEXIDINE GLUCONATE 473 ML MOUTHWASH MM SCH ×4 (09:40→20:58)
[2022-12-08] MEDS: SOLU-MEDROL 40MG VIAL IVP SCH ×2 (09:40→17:46)
[2022-12-08] MEDS: THIAMINE HCL 100 MG/ML 2ML VIAL IVP SCH (09:40)
[2022-12-08] MEDS: INSULIN GLARGINE 100 UNITS/ML 10 ML VIAL SQ SCH ×2 (09:58→21:31)
[2022-12-08] MEDS ORDERED: CLINIMIX-E 5%AA /D15%W 2000ML 2,000 ML IV ONE (13:30)
[2022-12-08] MEDS: AZITHROMYCIN 500MG+NS 250ML 250 ML IV SCH (20:52)
[2022-12-08] MEDS: DEXMEDETOMIDINE 400MCG/NS100ML IV SCH (20:54)
[2022-12-08] MEDS: SERTRALINE HCL 50 MG TABLET PO SCH (20:58)
[2022-12-09] VITALS (25 sets, daily range): BP systolic 114–162; BP diastolic 55–87
[2022-12-09] MEDS: SOLU-MEDROL 40MG VIAL IVP SCH ×3 (00:59→16:09)
[2022-12-09] MEDS: INSULIN HUMULIN R 100 UNIT/ML 3ML SQ SCH ×4 (01:05→17:51)
[2022-12-09 03:19] LABS: ABG BASE EXCESS 3.3 mmol/L (-2.0-3.0); ABG PCO2 43 mmHg (35-48)
[2022-12-09] MEDS: ZOSYN 3.375GM +NS 50ML IVPB SCH ×3 (05:14→20:24)
[2022-12-09 06:03] LABS: BASOPHILS % (AUTO) 0.2 % (0.0-5.0); HEMATOCRIT 28.7 % (42-54); LYMPHOCYTES % (AUTO) 3.9 % (21.0-51.0); MEAN CORPUSCULAR HEMOGLOBIN 30.9 pg (27.0-33.0); MEAN CORPUSCULAR VOLUME 99.7 fL (79-99); MONOCYTES % (AUTO) 2.5 % (3.0-13.0); NEUTROPHILS % (AUTO) 88.8 % (40.0-77.0); PLATELET COUNT (AUTO) 196 K/uL (130-400); RED BLOOD CELL COUNT(AUTO) 2.88 MIL/uL (4.50-6.20); RED CELL DISTRIBUTION WIDTH 17.3 % (11.0-15.5); WHITE BLOOD COUNT (AUTO) 18.6 K/uL (4.8-10.8)
[2022-12-09 06:07] LABS: ALBUMIN 2.9 g/dL (3.5-5.0); CREATININE 0.9 mg/dL (0.5-1.5); POTASSIUM 4.8 mmol/L (3.5-5.1); TOTAL PROTEIN, SERUM 6.1 g/dL (6.0-8.3)
[2022-12-09] MEDS: DEXMEDETOMIDINE 400MCG/NS100ML IV SCH (07:32)
[2022-12-09] MEDS: OXYMETAZOLINE HCL SPRAY 15 ML BOTTLE EN SCH ×2 (08:54→20:24)
[2022-12-09] MEDS: PANTOPRAZOLE 40 MG/VIAL IVP SCH (08:55)
[2022-12-09] MEDS: CHLORHEXIDINE GLUCONATE 473 ML MOUTHWASH MM SCH ×4 (08:55→20:24)
[2022-12-09] MEDS: THIAMINE HCL 100 MG/ML 2ML VIAL IVP SCH (08:55)
[2022-12-09] MEDS: INSULIN GLARGINE 100 UNITS/ML 10 ML VIAL SQ SCH ×2 (08:59→20:23)
[2022-12-09] MEDS: FAT EMULSIONS 20% 250ML 250 ML IV SCH (09:39)
[2022-12-09] MEDS ORDERED: CLINIMIX-E 5%AA /D15%W 2000ML 2,000 ML IV ONE (13:00)
[2022-12-09] MEDS: HYDROXYZINE 10 MG TABLET PO PRN (14:30)
[2022-12-09] MEDS: BUDESONIDE 0.5 MG/2 ML INH IH SCH (18:00)
[2022-12-09] MEDS: AZITHROMYCIN 500MG+NS 250ML 250 ML IV SCH (20:23)
[2022-12-09] MEDS: ARFORMOTEROL 15 MCG NEB SCH (20:24)
[2022-12-09] MEDS: SERTRALINE HCL 50 MG TABLET PO SCH (20:24)
[2022-12-09] MEDS: ZOLPIDEM TARTRATE 5 MG TAB PO PRN (20:53)
[2022-12-10] VITALS (25 sets, daily range): BP systolic 126–169; BP diastolic 59–89
[2022-12-10] MEDS: SOLU-MEDROL 40MG VIAL IVP SCH ×4 (01:05→23:40)
[2022-12-10] MEDS: INSULIN HUMULIN R 100 UNIT/ML 3ML SQ SCH ×5 (01:06→23:42)
[2022-12-10] MEDS: HYDROXYZINE 10 MG TABLET PO PRN ×4 (03:20→23:40)
[2022-12-10 05:29] LABS: BASOPHILS % (AUTO) 0.3 % (0.0-5.0); HEMATOCRIT 31.3 % (42-54); LYMPHOCYTES % (AUTO) 3.1 % (21.0-51.0); MEAN CORPUSCULAR HEMOGLOBIN 31.7 pg (27.0-33.0); MEAN CORPUSCULAR HGB CONC 32.3 g/dL (32.0-36.0); MEAN CORPUSCULAR VOLUME 98.1 fL (79-99); MONOCYTES % (AUTO) 2.6 % (3.0-13.0); NEUTROPHILS % (AUTO) 89.9 % (40.0-77.0); NUCLEATED RED BLOOD CELLS 0.1 % (0.0-0.19); PLATELET COUNT (AUTO) 273 K/uL (130-400); RED BLOOD CELL COUNT(AUTO) 3.19 MIL/uL (4.50-6.20); RED CELL DISTRIBUTION WIDTH 17.3 % (11.0-15.5); WHITE BLOOD COUNT (AUTO) 25.6 K/uL (4.8-10.8)
[2022-12-10] MEDS: ZOSYN 3.375GM +NS 50ML IVPB SCH ×3 (05:43→20:17)
[2022-12-10 06:13] LABS: CREATININE 0.9 mg/dL (0.5-1.5); POTASSIUM 4.5 mmol/L (3.5-5.1); TOTAL PROTEIN, SERUM 6.4 g/dL (6.0-8.3)
[2022-12-10] MEDS: ARFORMOTEROL 15 MCG NEB SCH ×2 (09:00→20:00)
[2022-12-10] MEDS: PANTOPRAZOLE 40 MG/VIAL IVP SCH (09:19)
[2022-12-10] MEDS: THIAMINE HCL 100 MG/ML 2ML VIAL IVP SCH (09:19)
[2022-12-10] MEDS: OXYMETAZOLINE HCL SPRAY 15 ML BOTTLE EN SCH ×2 (09:20→20:28)
[2022-12-10] MEDS: CHLORHEXIDINE GLUCONATE 473 ML MOUTHWASH MM SCH ×4 (09:20→20:29)
[2022-12-10] MEDS: INSULIN GLARGINE 100 UNITS/ML 10 ML VIAL SQ SCH ×2 (09:22→20:27)
[2022-12-10] MEDS ORDERED: CLINIMIX-E 5%AA /D15%W 2000ML 2,000 ML IV SCH (11:00)
[2022-12-10] MEDS: BUDESONIDE 0.5 MG/2 ML INH IH SCH ×2 (20:00→20:04)
[2022-12-10] MEDS: AZITHROMYCIN 500MG+NS 250ML 250 ML IV SCH (20:15)
[2022-12-10] MEDS: SERTRALINE HCL 50 MG TABLET PO SCH (20:22)
[2022-12-10] MEDS: MAG/ALUM/SIMETH 30 ML UDCUP PO PRN (21:29)
[2022-12-11] VITALS (21 sets, daily range): BP systolic 117–165; BP diastolic 53–88
[2022-12-11] MEDS: ZOLPIDEM TARTRATE 5 MG TAB PO PRN (04:20)
[2022-12-11] MEDS: ZOSYN 3.375GM +NS 50ML IVPB SCH ×3 (04:34→20:24)
[2022-12-11 05:01] LABS: BASOPHILS % (AUTO) 0.2 % (0.0-5.0); HEMATOCRIT 32.4 % (42-54); LYMPHOCYTES % (AUTO) 3.9 % (21.0-51.0); MEAN CORPUSCULAR HEMOGLOBIN 30.9 pg (27.0-33.0); MEAN CORPUSCULAR HGB CONC 31.8 g/dL (32.0-36.0); MEAN CORPUSCULAR VOLUME 97.3 fL (79-99); MONOCYTES % (AUTO) 3.3 % (3.0-13.0); NEUTROPHILS % (AUTO) 88.9 % (40.0-77.0); NUCLEATED RED BLOOD CELLS 0.1 % (0.0-0.19); PLATELET COUNT (AUTO) 266 K/uL (130-400); RED BLOOD CELL COUNT(AUTO) 3.33 MIL/uL (4.50-6.20); RED CELL DISTRIBUTION WIDTH 17.5 % (11.0-15.5)
[2022-12-11 05:14] LABS: ALBUMIN 3.1 g/dL (3.5-5.0); POTASSIUM 4.4 mmol/L (3.5-5.1); TOTAL PROTEIN, SERUM 6.3 g/dL (6.0-8.3)
[2022-12-11] MEDS: INSULIN HUMULIN R 100 UNIT/ML 3ML SQ SCH ×3 (06:26→18:20)
[2022-12-11] MEDS: ARFORMOTEROL 15 MCG NEB SCH ×2 (06:33→19:15)
[2022-12-11] MEDS: BUDESONIDE 0.5 MG/2 ML INH IH SCH ×2 (06:34→19:08)
[2022-12-11] MEDS: SOLU-MEDROL 40MG VIAL IVP SCH ×2 (08:02→16:04)
[2022-12-11] MEDS: THIAMINE HCL 100 MG/ML 2ML VIAL IVP SCH (08:02)
[2022-12-11] MEDS: PANTOPRAZOLE 40 MG/VIAL IVP SCH (08:02)
[2022-12-11] MEDS: OXYMETAZOLINE HCL SPRAY 15 ML BOTTLE EN SCH ×2 (08:03→20:25)
[2022-12-11] MEDS: CHLORHEXIDINE GLUCONATE 473 ML MOUTHWASH MM SCH ×4 (08:03→20:25)
[2022-12-11] MEDS: FAT EMULSIONS 20% 250ML 250 ML IV SCH (08:03)
[2022-12-11] MEDS: INSULIN GLARGINE 100 UNITS/ML 10 ML VIAL SQ SCH ×2 (08:05→20:28)
[2022-12-11] MEDS ORDERED: CLINIMIX-E 5%AA /D15%W 2000ML 2,000 ML IV SCH (11:00)
[2022-12-11] MEDS: ALBUTEROL 0.083% 2.5 MG/3 ML INH IH PRN ×2 (11:02→19:08)
[2022-12-11] MEDS: ACETYLCYSTEINE 20% 200MG/ML 4ML VIAL IH SCH ×2 (11:02→19:09)
[2022-12-11] MEDS: HYDROXYZINE 10 MG TABLET PO PRN (17:40)
[2022-12-11] MEDS ORDERED: AZITHROMYCIN 500MG+NS 250ML 250 ML ONE (20:18)
[2022-12-11] MEDS: AZITHROMYCIN 500MG+NS 250ML 250 ML IV SCH (20:24)
[2022-12-11] MEDS: SERTRALINE HCL 50 MG TABLET PO SCH (20:25)
[2022-12-12] VITALS (13 sets, daily range): BP systolic 114–144; BP diastolic 63–83
[2022-12-12] MEDS: SOLU-MEDROL 40MG VIAL IVP SCH ×4 (00:25→23:30)
[2022-12-12] MEDS: HYDROXYZINE 10 MG TABLET PO PRN ×4 (00:25→17:14)
[2022-12-12] MEDS: INSULIN HUMULIN R 100 UNIT/ML 3ML SQ SCH ×5 (00:27→23:33)
[2022-12-12] MEDS: ACETYLCYSTEINE 20% 200MG/ML 4ML VIAL IH SCH ×5 (00:29→23:43)
[2022-12-12] MEDS: ALBUTEROL 0.083% 2.5 MG/3 ML INH IH PRN ×5 (00:30→23:43)
[2022-12-12] MEDS: ZOSYN 3.375GM +NS 50ML IVPB SCH ×3 (05:04→20:18)
[2022-12-12] MEDS: BUDESONIDE 0.5 MG/2 ML INH IH SCH ×2 (06:26→19:08)
[2022-12-12] MEDS: ARFORMOTEROL 15 MCG NEB SCH ×2 (06:27→19:10)
[2022-12-12] MEDS: THIAMINE HCL 100 MG/ML 2ML VIAL IVP SCH (07:48)
[2022-12-12] MEDS: PANTOPRAZOLE 40 MG/VIAL IVP SCH (07:48)
[2022-12-12] MEDS: INSULIN GLARGINE 100 UNITS/ML 10 ML VIAL SQ SCH ×2 (07:49→21:06)
[2022-12-12] MEDS: OXYMETAZOLINE HCL SPRAY 15 ML BOTTLE EN SCH ×2 (07:53→20:21)
[2022-12-12] MEDS: CHLORHEXIDINE GLUCONATE 473 ML MOUTHWASH MM SCH ×4 (07:54→20:20)
[2022-12-12 09:52] LABS: BASOPHILS % (AUTO) 0.2 % (0.0-5.0); HEMATOCRIT 31.2 % (42-54); LYMPHOCYTES % (AUTO) 3.9 % (21.0-51.0); MEAN CORPUSCULAR HGB CONC 32.4 g/dL (32.0-36.0); MEAN CORPUSCULAR VOLUME 95.7 fL (79-99); NEUTROPHILS % (AUTO) 89.5 % (40.0-77.0); NUCLEATED RED BLOOD CELLS 0.2 % (0.0-0.19); PLATELET COUNT (AUTO) 285 K/uL (130-400); RED BLOOD CELL COUNT(AUTO) 3.26 MIL/uL (4.50-6.20); RED CELL DISTRIBUTION WIDTH 17.3 % (11.0-15.5); WHITE BLOOD COUNT (AUTO) 17.6 K/uL (4.8-10.8)
[2022-12-12 10:11] LABS: CREATININE 0.8 mg/dL (0.5-1.5); MAGNESIUM 1.9 mg/dL (1.80-2.40); PHOSPHORUS 3.2 mg/dL (2.5-4.9); POTASSIUM 4.4 mmol/L (3.5-5.1); TOTAL PROTEIN, SERUM 6.1 g/dL (6.0-8.3)
[2022-12-12] MEDS ORDERED: CLINIMIX-E 5%AA /D15%W 2000ML 2,000 ML IV SCH (12:00)
[2022-12-12] MEDS: AZITHROMYCIN 500MG+NS 250ML 250 ML IV SCH (20:13)
[2022-12-12] MEDS: SERTRALINE HCL 50 MG TABLET PO SCH (20:13)
[2022-12-13 03:30] VITALS: BP 118/65
[2022-12-13] MEDS: ZOSYN 3.375GM +NS 50ML IVPB SCH ×3 (04:30→20:44)
[2022-12-13] MEDS: INSULIN HUMULIN R 100 UNIT/ML 3ML SQ SCH ×4 (05:07→23:48)
[2022-12-13] MEDS: BUDESONIDE 0.5 MG/2 ML INH IH SCH ×2 (07:08→19:06)
[2022-12-13] MEDS: ACETYLCYSTEINE 20% 200MG/ML 4ML VIAL IH SCH ×4 (07:08→23:46)
[2022-12-13] MEDS: ALBUTEROL 0.083% 2.5 MG/3 ML INH IH PRN ×4 (07:08→23:46)
[2022-12-13 07:21] VITALS: BP 114/78
[2022-12-13] MEDS: ARFORMOTEROL 15 MCG NEB SCH ×2 (08:01→19:07)
[2022-12-13 08:03] LABS: MEAN CORPUSCULAR HEMOGLOBIN 31.6 pg (27.0-33.0); MEAN CORPUSCULAR HGB CONC 32.9 g/dL (32.0-36.0); PLATELET COUNT (AUTO) 275 K/uL (130-400); RED BLOOD CELL COUNT(AUTO) 3.23 MIL/uL (4.50-6.20); RED CELL DISTRIBUTION WIDTH 17.2 % (11.0-15.5); WHITE BLOOD COUNT (AUTO) 18.1 K/uL (4.8-10.8)
[2022-12-13] MEDS: PANTOPRAZOLE 40 MG/VIAL IVP SCH (08:04)
[2022-12-13] MEDS: OXYMETAZOLINE HCL SPRAY 15 ML BOTTLE EN SCH (08:04)
[2022-12-13] MEDS: CHLORHEXIDINE GLUCONATE 473 ML MOUTHWASH MM SCH ×4 (08:04→20:45)
[2022-12-13] MEDS: SOLU-MEDROL 40MG VIAL IVP SCH ×2 (08:04→20:39)
[2022-12-13] MEDS: THIAMINE HCL 100 MG/ML 2ML VIAL IVP SCH (08:04)
[2022-12-13] MEDS: INSULIN GLARGINE 100 UNITS/ML 10 ML VIAL SQ SCH ×2 (08:05→20:44)
[2022-12-13 09:56] LABS: CREATININE 0.9 mg/dL (0.5-1.5); MAGNESIUM 1.9 mg/dL (1.80-2.40); POTASSIUM 4.5 mmol/L (3.5-5.1); TOTAL PROTEIN, SERUM 6.2 g/dL (6.0-8.3)
[2022-12-13 10:20] LABS: MONOCYTES % (MANUAL) 8 % (2-9); SEGMENTED NEUTROPHILS % 92 % (40-70)
[2022-12-13 10:22] LABS: MAN.DIFF COMMENT-IMPRESSION MANUAL DIF; PLATELET MORPHOLOGY COMMENT ADEQUATE
[2022-12-13] MEDS ORDERED: CLINIMIX-E 5%AA /D15%W 2000ML 2,000 ML IV SCH (11:00)
[2022-12-13] MEDS: FAT EMULSIONS 20% 250ML 250 ML IV SCH (11:10)
[2022-12-13 11:47] VITALS: BP 130/66
[2022-12-13 15:49] VITALS: BP 137/70
[2022-12-13] MEDS ORDERED: FUROSEMIDE 40MG VIAL IV SCH (17:00)
[2022-12-13] MEDS: HYDROXYZINE 10 MG TABLET PO PRN ×2 (18:22→23:57)
[2022-12-13] MEDS ORDERED: OXYMETAZOLINE HCL SPRAY 15 ML BOTTLE EN PRN (18:30)
[2022-12-13 20:00] VITALS: BP 133/72
[2022-12-13] MEDS: SERTRALINE HCL 50 MG TABLET PO SCH (20:44)
[2022-12-13] MEDS: AZITHROMYCIN 500MG+NS 250ML 250 ML IV SCH (20:44)
[2022-12-13] MEDS: MAG/ALUM/SIMETH 30 ML UDCUP PO PRN (23:10)
[2022-12-13] MEDS: FLUTICASONE PROPIONATE 50MCG/SPRAY 16 GM BOTTLE EN SCH (23:20)
[2022-12-13 23:51] VITALS: BP 120/69
[2022-12-14 03:22] VITALS: BP 109/65
[2022-12-14 03:58] LABS: BASOPHILS % (AUTO) 0.1 % (0.0-5.0); HEMATOCRIT 35.2 % (42-54); LYMPHOCYTES % (AUTO) 3.6 % (21.0-51.0); MEAN CORPUSCULAR HEMOGLOBIN 31.5 pg (27.0-33.0); MEAN CORPUSCULAR VOLUME 95.7 fL (79-99); MONOCYTES % (AUTO) 4.2 % (3.0-13.0); NEUTROPHILS % (AUTO) 90.1 % (40.0-77.0); NUCLEATED RED BLOOD CELLS 0.2 % (0.0-0.19); PLATELET COUNT (AUTO) 280 K/uL (130-400); RED BLOOD CELL COUNT(AUTO) 3.68 MIL/uL (4.50-6.20); RED CELL DISTRIBUTION WIDTH 17.7 % (11.0-15.5); WHITE BLOOD COUNT (AUTO) 16.3 K/uL (4.8-10.8)
[2022-12-14 04:19] LABS: ALBUMIN 3.4 g/dL (3.5-5.0); CREATININE 1.2 mg/dL (0.5-1.5); MAGNESIUM 2.2 mg/dL (1.80-2.40); PHOSPHORUS 3.5 mg/dL (2.5-4.9); TOTAL PROTEIN, SERUM 6.8 g/dL (6.0-8.3)
[2022-12-14] MEDS: ZOSYN 3.375GM +NS 50ML IVPB SCH ×3 (04:25→20:53)
[2022-12-14] MEDS: INSULIN HUMULIN R 100 UNIT/ML 3ML SQ SCH ×4 (05:45→23:42)
[2022-12-14] MEDS: ACETYLCYSTEINE 20% 200MG/ML 4ML VIAL IH SCH ×4 (06:20→23:41)
[2022-12-14] MEDS: ALBUTEROL 0.083% 2.5 MG/3 ML INH IH PRN ×4 (06:20→23:41)
[2022-12-14] MEDS: ARFORMOTEROL 15 MCG NEB SCH ×2 (06:22→18:40)
[2022-12-14] MEDS: BUDESONIDE 0.5 MG/2 ML INH IH SCH ×2 (06:22→18:18)
[2022-12-14 08:00] VITALS: BP 130/75
[2022-12-14] MEDS: THIAMINE HCL 100 MG/ML 2ML VIAL IVP SCH (09:19)
[2022-12-14] MEDS: SERTRALINE HCL 50 MG TABLET PO SCH ×2 (09:19→20:53)
[2022-12-14] MEDS: PANTOPRAZOLE 40 MG/VIAL IVP SCH (09:19)
[2022-12-14] MEDS: FLUTICASONE PROPIONATE 50MCG/SPRAY 16 GM BOTTLE EN SCH ×2 (09:19→20:54)
[2022-12-14] MEDS: SOLU-MEDROL 40MG VIAL IVP SCH ×2 (09:19→20:53)
[2022-12-14] MEDS: CHLORHEXIDINE GLUCONATE 473 ML MOUTHWASH MM SCH ×4 (09:20→20:55)
[2022-12-14] MEDS: FAT EMULSIONS 20% 250ML 250 ML IV SCH (09:25)
[2022-12-14] MEDS: INSULIN GLARGINE 100 UNITS/ML 10 ML VIAL SQ SCH ×2 (09:39→21:13)
[2022-12-14] MEDS ORDERED: CLINIMIX-E 5%AA /D15%W 2000ML 2,000 ML IV SCH (10:30)
[2022-12-14 11:50] VITALS: BP 125/69
[2022-12-14] MEDS: HYDROXYZINE 10 MG TABLET PO PRN ×2 (12:30→23:34)
[2022-12-14] MEDS ORDERED: LIDOCAINE HCL 1% 20 ML VIAL ONE (13:54)
[2022-12-14 15:56] VITALS: BP 136/74
[2022-12-14 19:16] VITALS: BP 135/71
[2022-12-14] MEDS: AZITHROMYCIN 500MG+NS 250ML 250 ML IV SCH (20:53)
[2022-12-14] MEDS: MAG/ALUM/SIMETH 30 ML UDCUP PO PRN (20:54)
[2022-12-14 23:40] VITALS: BP 150/74
[2022-12-15 04:12] VITALS: BP 128/80
[2022-12-15] MEDS: ZOSYN 3.375GM +NS 50ML IVPB SCH ×2 (04:17→12:17)
[2022-12-15] MEDS: INSULIN HUMULIN R 100 UNIT/ML 3ML SQ SCH ×2 (05:48→12:16)
[2022-12-15] MEDS: HYDROXYZINE 10 MG TABLET PO PRN (06:14)
[2022-12-15] MEDS: ACETYLCYSTEINE 20% 200MG/ML 4ML VIAL IH SCH ×2 (07:02→11:09)
[2022-12-15] MEDS: ALBUTEROL 0.083% 2.5 MG/3 ML INH IH PRN ×2 (07:02→11:09)
[2022-12-15] MEDS: BUDESONIDE 0.5 MG/2 ML INH IH SCH (07:16)
[2022-12-15 07:41] VITALS: BP 125/73
[2022-12-15] MEDS: INSULIN GLARGINE 100 UNITS/ML 10 ML VIAL SQ SCH (08:47)
[2022-12-15] MEDS: FLUTICASONE PROPIONATE 50MCG/SPRAY 16 GM BOTTLE EN SCH (08:53)
[2022-12-15] MEDS: CHLORHEXIDINE GLUCONATE 473 ML MOUTHWASH MM SCH ×2 (08:54→12:24)
[2022-12-15] MEDS: ARFORMOTEROL 15 MCG NEB SCH (08:57)
[2022-12-15] MEDS: SOLU-MEDROL 40MG VIAL IVP SCH (08:59)
[2022-12-15] MEDS: SERTRALINE HCL 50 MG TABLET PO SCH (08:59)
[2022-12-15] MEDS: PANTOPRAZOLE 40 MG/VIAL IVP SCH (08:59)
[2022-12-15] MEDS: FAT EMULSIONS 20% 250ML 250 ML IV SCH (09:00)
[2022-12-15] MEDS: THIAMINE HCL 100 MG/ML 2ML VIAL IVP SCH (09:00)
[2022-12-15 12:15] VITALS: BP 142/70
== END 2022-12-15 14:44 | DRG 177 ==
LOC: EDH 17:17 → EDHIP 18:53 → 4CH 22:47 → 2CH 12-02 13:06 → 2AH 12-12 11:07
PROVIDERS: ADMIT Internal Medicine; ATTEND Internal Medicine
PROC: 30233N1 Transfusion of Nonautologous Red Blood Cells into Peripheral Vein, Percutaneous Approach (ICD-10-PCS; 2022-12-05)
PROC: 0BBK3ZX Excision of Right Lung, Percutaneous Approach, Diagnostic (ICD-10-PCS; principal; 2022-12-14)
DX: J69.0 Pneumonitis due to inhalation of food and vomit (principal); A41.9 Sepsis, unspecified organism; I21.4 Non-ST elevation (NSTEMI) myocardial infarction; R65.21 Severe sepsis with septic shock; J96.21 Acute and chronic respiratory failure with hypoxia; J96.22 Acute and chronic respiratory failure with hypercapnia; E87.1 Hypo-osmolality and hyponatremia; N17.9 Acute kidney failure, unspecified; D58.9 Hereditary hemolytic anemia, unspecified; E87.20 Acidosis, unspecified; J93.83 Other pneumothorax; I48.92 Unspecified atrial flutter; M62.82 Rhabdomyolysis; Z20.822 Contact with and (suspected) exposure to COVID-19; E11.22 Type 2 diabetes mellitus with diabetic chronic kidney disease; E11.65 Type 2 diabetes mellitus with hyperglycemia; E87.5 Hyperkalemia; I25.10 Atherosclerotic heart disease of native coronary artery without angina pectoris; I12.9 Hypertensive chronic kidney disease with stage 1 through stage 4 chronic kidney disease, or unspecified chronic kidney disease; J43.9 Emphysema, unspecified; E78.5 Hyperlipidemia, unspecified; F41.9 Anxiety disorder, unspecified; T38.0X5A Adverse effect of glucocorticoids and synthetic analogues, initial encounter; K22.2 Esophageal obstruction; N18.2 Chronic kidney disease, stage 2 (mild); I48.91 Unspecified atrial fibrillation; G47.33 Obstructive sleep apnea (adult) (pediatric); K21.9 Gastro-esophageal reflux disease without esophagitis; R13.14 Dysphagia, pharyngoesophageal phase; Z87.891 Personal history of nicotine dependence; I25.2 Old myocardial infarction; Z79.4 Long term (current) use of insulin; Z99.81 Dependence on supplemental oxygen; Z87.01 Personal history of pneumonia (recurrent); J14 Pneumonia due to Hemophilus influenzae
CPT/HCPCS: 32405; 36415; 36430; 36556; 36600; 71045; 71250; 76705; 77012; 80048; 80053; 80061; 81001; 82435; 82550; 82803; 82947; 82948; 83036; 83605; 83735; 83874; 83880; 84100; 84132; 84145; 84295; 84484; 85018; 85025; 85027; 85384; 85610; 85651; 85730; 86140; 86850; 86900; 86901; 86923; 86927; 87040; 87070; 87071; 87077; 87186; 87205; 87635; 87804; 93005; 94640; 94660; 94664; 94667; 94668; C1751; C1894; C9113; G0378; J0330; J0456; J0610; J0696; J1100; J1650; J1815; J1940; J2250; J2543; J2704; J2920; J2930; J3010; J3411; J3430; J3475; J3486; J3490; J7608; P9016; P9017

== ENCOUNTER 2023-08-17 07:10 | Day surgery (SDC) | payer MEDICARE ==
[2023-08-13 15:22] LABS: BASOPHILS # (AUTO) 0.03 K/uL (0.00-0.20); BASOPHILS % (AUTO) 0.2 % (0.0-5.0); EOSINOPHILS # (AUTO) 0.08 K/uL (0.00-0.70); EOSINOPHILS % (AUTO) 0.5 % (0.0-8.0); HEMATOCRIT 50.3 % (42-54); IMMATURE GRANULOCYTE ABSOLUTE 0.09 K/uL (0-1); LYMPHOCYTES # (AUTO) 1.8 K/uL (1.0-4.8); LYMPHOCYTES % (AUTO) 12.2 % (21.0-51.0); MEAN CORPUSCULAR HEMOGLOBIN 32.6 pg (27.0-33.0); MEAN CORPUSCULAR HGB CONC 33.2 g/dL (32.0-36.0); MEAN CORPUSCULAR VOLUME 98.1 fL (79-99); MONOCYTES # (AUTO) 0.6 K/uL (0.1-1.0); MONOCYTES % (AUTO) 4.1 % (3.0-13.0); NEUTROPHILS # (AUTO) 12.2 K/uL (1.8-7.7); NEUTROPHILS % (AUTO) 82.4 % (40.0-77.0); PLATELET COUNT (AUTO) 136 K/uL (130-400); RED BLOOD CELL COUNT(AUTO) 5.13 MIL/uL (4.50-6.20); RED CELL DISTRIBUTION WIDTH 16.2 % (11.0-15.5); WHITE BLOOD COUNT (AUTO) 14.8 K/uL (4.8-10.8)
[2023-08-13 15:27] LABS: APPEARANCE,URINE CLEAR (CLEAR); BILIRUBIN,URINE NEGATIVE (NEGATIVE); COLOR,URINE YELLOW (YELLOW); GLUCOSE, URINE (UA) NEGATIVE (NEGATIVE); KETONES,URINE NEGATIVE (NEGATIVE); LEUKOCYTE ESTERASE ,URINE NEGATIVE Leu/uL (NEGATIVE); NITRATE,URINE NEGATIVE (NEGATIVE); OCCULT BLOOD,URINE NEGATIVE (NEGATIVE); PH,URINE 6.5 (5.0-8.0); PROTEIN,URINE 70 mg/dL (NEGATIVE); UROBILINOGEN,URINE 0.2 mg/dL (0.2-1.0)
[2023-08-13 15:32] LABS: CREATININE 1.1 mg/dL (0.5-1.5); INR 1.02 (0.85-1.15); POTASSIUM 4.6 mmol/L (3.5-5.1); PROTHROMBIN TIME 11.8 SEC (9.6-11.6)
[2023-08-13 15:33] LABS: PARTIAL THROMBOPLASTIN TIME 25.2 SEC (26.3-35.5)
[2023-08-13 15:37] LABS: ADD UA MICROSCOPIC YES
[2023-08-13 15:39] LABS: OTHER CASTS, URINE 1 /LPF (None Seen); WBC,URINE 0-1 /HPF (0-1)
[2023-08-13 16:08] LABS: B-TYPE NATRIURETIC PEPTIDE 504 pg/mL (0-100)
[2023-08-16 16:38] VITALS: BP 90/64; PULSE 74
[2023-08-17] VITALS (9 sets, daily range): BP systolic 116–130; BP diastolic 65–75; PULSE 62–99; RESP 14–19
[~2023-08-17] VITALS: Ht 180.3 cm; Wt 75.3 kg
[~2023-08-17 07:10] MED LIST changes: +AEC81 PO; +AMOX500C2 PO; -CBD GUMMIES PO; -COLL1CAP PO; -ETOMIDATE 20MG VIAL IVP ONE; -IPRA3AMP24 IH; +IPRA3AMP24 NEB; -LACT-356 PO; +MAGN250C PO; -MAGN250T10 PO; +MULT-1367 PO; -MULT1CAP17 PO; -OLME40TA18 PO; +PRAV40TA3 PO; +PRED20TA3 PO; +PROBIOTIC PO; -ROCURONIUM BROMIDE 10MG/1ML 5ML VL IV ONE; -[UNRECOGNIZED DRUG - OTHER] PO
[2023-08-17] MEDS ORDERED: VERAPAMIL HCL 2.5 MG/ML VIAL ONE (11:33)
[2023-08-17] MEDS ORDERED: FENTANYL CITRATE PF 50 MCG/1 ML 2ML VIAL ONE (11:33)
[2023-08-17] MEDS ORDERED: MIDAZOLAM HCL 1 MG/ML 2ML VIAL ONE (11:33)
[2023-08-17] MEDS ORDERED: LIDOCAINE HCL 400MG/20ML VIAL ONE (11:33)
[2023-08-17] MEDS ORDERED: IOHEXOL 350 MG/ML 100ML INFUS..BTL IV ONE (11:33)
[2023-08-17] MEDS ORDERED: HEPARIN 10,000 UNIT/10ML (1,000 UNIT/ML) VIAL ONE (11:34)
[2023-08-17] MEDS ORDERED: 0.9%NACL 1000ML 1,000 ML IV SCH (13:30)
[2023-08-17] MEDS ORDERED: DEXTROSE 50%-WATER 50 ML DISP.SYRIN IV PRN (13:30)
[2023-08-17] MEDS ORDERED: GLUCAGON 1MG KIT 1 MG ML IM PRN (13:30)
== END 2023-08-17 16:30 | disposition home or self-care (01) ==
LOC: DAH 07:10
PROVIDERS: ATTEND Student in an Organized Health Care Education/Training Program
DX: I25.119 Atherosclerotic heart disease of native coronary artery with unspecified angina pectoris (principal); T82.855A Stenosis of coronary artery stent, initial encounter; J96.21 Acute and chronic respiratory failure with hypoxia; I11.0 Hypertensive heart disease with heart failure; I50.32 Chronic diastolic (congestive) heart failure; I37.1 Nonrheumatic pulmonary valve insufficiency; I45.10 Unspecified right bundle-branch block; E78.5 Hyperlipidemia, unspecified; I25.2 Old myocardial infarction; I48.0 Paroxysmal atrial fibrillation; J44.1 Chronic obstructive pulmonary disease with (acute) exacerbation; Z99.81 Dependence on supplemental oxygen; Z95.5 Presence of coronary angioplasty implant and graft; Z87.891 Personal history of nicotine dependence; Y83.8 Other surgical procedures as the cause of abnormal reaction of the patient, or of later complication, without mention of misadventure at the time of the procedure; Y92.89 Other specified places as the place of occurrence of the external cause
CPT/HCPCS: 80048; 83880; 85025; 85610; 85730; 81001; 36415; 71045; 93005; 93460; C1894 ×2; C1769 ×3; A4649; J3010; J3490 ×2; J1644 ×3; J2250; Q9967; A4215; A4335; A4222; A4221; A4663; A4216; A4606; Q9965; A4223 ×3; A4554; 99156; 99157

== ENCOUNTER → 2023-08-31 | Outpatient (CLI) | payer MEDICARE | END | disposition home or self-care (01) | LOC: SHCH 14:01 | PROVIDERS: ATTEND Student in an Organized Health Care Education/Training Program | DX: R60.9 Edema, unspecified (principal) | CPT/HCPCS: 93971 ==